=== PATIENT | female | born 1990 | race Caucasian/White ===

== ENCOUNTER 2018-11-27 09:43 | Day surgery (SDC) | payer BC ==
[~2018-11-27] VITALS: Ht 157.5 cm; Wt 91.2 kg
[2018-11-27 10:35] LABS: HCG,QUAL RESULT NEGATIVE (NEGATIVE)
[2018-11-27] MEDS ORDERED: LR 1,000 ML IV SCH (12:33)
[2018-11-27] MEDS ORDERED: MEPERIDINE HCL/PF 25 MG/ML DISP.SYRIN IVP PRN (12:45)
[2018-11-27] MEDS ORDERED: DEXAMETHASONE SOD PHOSPHATE 4 MG/ML VIAL ONE (12:45)
[2018-11-27] MEDS ORDERED: HYDROmorphone 2 MG/ML VIAL IVP PRN ×2 (12:45)
[2018-11-27] MEDS ORDERED: LR 1,000 ML IV.SOLN IV ONE (12:45)
[2018-11-27] MEDS ORDERED: KETOROLAC TROMETHAMINE 30 MG VIAL ONE (12:45)
[2018-11-27] MEDS ORDERED: MIDAZOLAM HCL 5 MG/ML VIAL (VERSED) IV ONE (12:45)
[2018-11-27] MEDS ORDERED: ONDANSETRON HCL 4 MG/2 ML VIAL ONE (12:45)
[2018-11-27] MEDS ORDERED: ROCURONIUM BROMIDE 10 MG/ML (ZEMURON) ONE (12:45)
[2018-11-27] MEDS ORDERED: PROPOFOL 200MG/ 20ML VIAL (DIPRIVAN) IV ONE (12:45)
[2018-11-27] MEDS ORDERED: SEVOFLURANE 15 MIN GAS INH ONE (12:45)
[2018-11-27] MEDS ORDERED: HYDROmorphone 1 MG INJ. 1 MG/ML AMPUL IVP PRN (12:45)
[2018-11-27] MEDS ORDERED: fentaNYL CITRATE/PF 100 MCG/2 ML AMP ONE (12:45)
[2018-11-27 13:22] VITALS: BP_SYST 110
== END 2018-11-27 14:10 | disposition home or self-care (01) ==
LOC: SDS 09:43 → SMU 09:43 → SDS 14:10
PROVIDERS: ATTEND Obstetrics & Gynecology
DX: T83.32XA Displacement of intrauterine contraceptive device, initial encounter (principal); E66.9 Obesity, unspecified; Z68.36 Body mass index [BMI] 36.0-36.9, adult; Y83.8 Other surgical procedures as the cause of abnormal reaction of the patient, or of later complication, without mention of misadventure at the time of the procedure
CPT/HCPCS: 58562; 84703; J1100; J1885; J2250; J2405; J2704; J3010; J7120

== ENCOUNTER 2023-01-03 09:48 | Day surgery (SDC) | payer BC ==
[~2023-01-03] VITALS: Ht 160 cm; Wt 98.0 kg
[2023-01-03 10:21] LABS: HCG,QUAL RESULT NEGATIVE (NEGATIVE)
[2023-01-03] MEDS ORDERED: SCOPOLAMINE HYDROBROMIDE 1 MG PATCH .72 H (TRANSDERM-SCOP) TD ONE ×2 (10:29→10:30)
[2023-01-03] MEDS ORDERED: KETOROLAC TROMETHAMINE 30 MG VIAL ONE (11:37)
[2023-01-03] MEDS ORDERED: ROCURONIUM BROMIDE 10 MG/ML (ZEMURON) ONE (11:37)
[2023-01-03] MEDS ORDERED: SUCCINYLCHOLINE CHLORIDE 20 MG/ML(QUELICIN) ONE (11:37)
[2023-01-03] MEDS ORDERED: ONDANSETRON HCL 4 MG/2 ML VIAL ONE (11:37)
[2023-01-03] MEDS ORDERED: LIDOCAINE/EPI 1% 1:100000 20 ML VIAL ONE (11:37)
[2023-01-03] MEDS ORDERED: SEVOFLURANE 15 MIN GAS INH ONE (11:37)
[2023-01-03] MEDS ORDERED: PROPOFOL 200MG/ 20ML VIAL (DIPRIVAN) IV ONE (11:37)
[2023-01-03] MEDS ORDERED: LR 1,000 ML IV.SOLN IV ONE (11:37)
[2023-01-03 12:00] VITALS: O2SAT 99
[2023-01-03] MEDS ORDERED: HYDROmorphone 1 MG/ML INJ. CARTRIDGE IVP PRN (12:00)
[2023-01-03] MEDS ORDERED: ONDANSETRON HCL 4 MG/2 ML VIAL IVP PRN (12:00)
[2023-01-03] MEDS ORDERED: IBUPROFEN 800 MG TABLET PO PRN (12:00)
[2023-01-03] MEDS ORDERED: METOCLOPRAMIDE HCL 10 MG/2 ML VIAL IVP PRN (12:00)
[2023-01-03] MEDS ORDERED: KETOROLAC TROMETHAMINE 30 MG VIAL IVP PRN (12:00)
[2023-01-03] MEDS ORDERED: ONDANSETRON HCL 4 MG/2 ML VIAL IVP ONE (12:00)
[2023-01-03 14:59] VITALS: BP_SYST 109; PULSE 67; RESP 16
== END 2023-01-03 14:55 | disposition home or self-care (01) ==
LOC: SDS 09:48 → SMU 09:49 → SDS 14:55
PROVIDERS: ATTEND Obstetrics & Gynecology
DX: Z30.2 Encounter for sterilization (principal); E66.01 Morbid (severe) obesity due to excess calories; Z79.899 Other long term (current) drug therapy; Z68.39 Body mass index [BMI] 39.0-39.9, adult
CPT/HCPCS: 87081; 58670; 84703; 84132; 36415; J1885; J2405; J2704; J0330; J7120; C1727